=== PATIENT | female | born 1970 | race Hispanic/Latino ===

== ENCOUNTER → 2022-06-25 | Day surgery (SDC) | payer OTHER ==
[2022-06-23 11:35] LABS: BASOPHILS # (AUTO) 0.1 (0.0-0.1); BASOPHILS % 0.7 % (0.0-1.0); EOSINOPHILS # (AUTO) 0.1 (0.0-0.4); EOSINOPHILS % 0.9 % (0.0-6.0); HEMATOCRIT 42.6 % (34.2-44.1); LYMPHOCYTES % 30.1 % (18.0-39.1); MEAN CORPUSCULAR HEMOGLOBIN 30.2 pg (28-32); MEAN CORPUSCULAR HGB CONC 32.9 g/dL (31-35); MEAN CORPUSCULAR VOLUME 91.8 fL (81-99); MONOCYTES # (AUTO) 0.8 (0.2-0.8); MONOCYTES % 7.7 % (4.4-11.3); NEUTROPHILS # (AUTO) 5.9 (2.1-6.9); NEUTROPHILS % 59.9 % (38.7-80.0); PLATELET COUNT 343 x10e3/uL (140-360); RED BLOOD COUNT 4.64 x10e6/uL (3.6-5.1); RED CELL DISTRIBUTION WIDTH 13.1 % (11.7-14.4)
[2022-06-23 11:51] LABS: ANION GAP 14.9 mmol/L (8-16); CALCIUM 9.6 mg/dL (8.4-10.2); CREATININE, SERUM 0.86 mg/dL (0.57-1.11); POTASSIUM 3.9 mmol/L (3.5-5.1)
[~2022-06-25] MED LIST: AMLODIPINE BESY10 MG PO; DOCUSATE SODIU100 MG PO; FENTANYL CITRATE/PF 100MCG/2 ML INJ ONE; GENTAMICIN 80MG/NS 100 ML 200 ML IV ONE; HYDROCHLOROTHIA25 MG PO; IOPAMIDOL 300MG/ML 50ML INFUS..BTL IV ONE; LIDOCAINE HCL 2% LOCAL INJ 5 ML SDV VIAL INJ ONE; METFORMIN HCL500 MG PO; MIDAZOLAM HCL 2 MG/2 ML VIAL ONE; ONDANSETRON HCL INJ 2MG/ML 2ML 2 MG/ML VIAL ONE; PHENAZOPYRIDINE HCL 100 MG TAB ONE; POVIDONE IODINE 0.05% 0.05 % ML PO ONE; PROPOFOL IV EMULSION 10 MG/ML 20 ML VIAL ONE; SEVOFLURANE INHAL SOLN 250 ML PEN BTL ONE
[2022-06-25 14:02] VITALS: BP 118/64
== END | disposition home or self-care (01) ==
LOC: OR 10:16
PROVIDERS: ATTEND Urology
DX: N30.10 Interstitial cystitis (chronic) without hematuria (principal); N81.10 Cystocele, unspecified; N36.41 Hypermobility of urethra; N95.2 Postmenopausal atrophic vaginitis; Z90.710 Acquired absence of both cervix and uterus; Z98.890 Other specified postprocedural states; R35.1 Nocturia; N32.81 Overactive bladder; N39.41 Urge incontinence; I10 Essential (primary) hypertension; E11.9 Type 2 diabetes mellitus without complications; R05.9 Cough, unspecified; E78.5 Hyperlipidemia, unspecified; K76.0 Fatty (change of) liver, not elsewhere classified; Z01.810 Encounter for preprocedural cardiovascular examination; Z01.812 Encounter for preprocedural laboratory examination; Z79.84 Long term (current) use of oral hypoglycemic drugs; Z79.899 Other long term (current) drug therapy; Z86.711 Personal history of pulmonary embolism
CPT/HCPCS: 36415 ×2; 52260; 74420; 80048; 82948; 85025; 87086; 93005; C1758; J1580; J2001; J2250; J2405; J2704; J3010; Q9967